=== PATIENT | female | born 1985 | race Caucasian/White ===

== ENCOUNTER 2018-03-04 00:23 | Emergency (ER) | payer BC, OTHER ==
[~2018-03-04] VITALS: Ht 167.6 cm; Wt 127.5 kg
[~2018-03-04 00:23] MED LIST: PHENTERMINE H37.5 M1 PO
[2018-03-04] MEDS ORDERED: ONDANSETRON HCL INJ 2 MG/ML VIAL IV STA (01:18)
[2018-03-04] MEDS ORDERED: FAMOTIDINE 20 MG/2 ML VIAL IV STA (01:18)
[2018-03-04] MEDS ORDERED: SODIUM CHLORIDE 0.9% 1000ML 1,000 ML IV SCH (01:30)
== END 2018-03-04 02:38 | disposition home or self-care (01) ==
LOC: FSED 00:23
DX: O21.9 Vomiting of pregnancy, unspecified (principal); R19.7 Diarrhea, unspecified; K52.9 Noninfective gastroenteritis and colitis, unspecified
CPT/HCPCS: 80048; 81003; 85025; 99283

== ENCOUNTER 2018-12-05 21:14 | Emergency (ER) | payer OTHER ==
[~2018-12-05] VITALS: Ht 167.6 cm; Wt 131.5 kg
--- OUTSIDE RECORDS SUMMARY | 2018-12-05 21:16 | XMS REPORT ---
Author Author [facility] Address Unknown Phone Unavailable Care Team Providers Care Financial Underwriter Name Role Phone Unavailable Unavailable Payers Payer Name Policy Type Policy Number Effective Date Expiration Date Problems This patient has no known problems. Allergies, Adverse Reactions, Alerts Allergy Name Allergy Type Status Severity Reaction(s) Onset Date Inactive Date Treating Clinician Comments pseudoephedrine DA Active [place] 2017-10-20 00:00:00 adhesive tape DA Active [place] 2017-10-20 00:00:00 loratadine DA Active [place] 2017-10-20 00:00:00 latex DA Active [place] 2017-10-20 00:00:00 Medications This patient has no known medications. Results Test Description Test Time Test Comments Text Results Atomic Results Result Comments SURGICAL SPECIMENS 2018-08-08 07:42:00 RUN DATE: 08/08/18 [facility] *LIVE* PAGE 1 RUN TIME: 741 Specimen Inquiry RUN USER: INTERFACE PATIENT: JEFERSON CARTER LOC: [facility] U #: [id number] AGE/SX: 32/ ROOM: Marcus RE08/03/18REG DR: Wei Peña MD : 87 BED: 1 DIS: 08/06/18 STATUS: DIS IN TLOC: SPEC #: [id number] RECD: 08/06/18 STATUS: SOUT REQ #: [id number] KAILEY: 08/06/[address]: Wei Peña MD ENTERED: 08/07/18 SP TYPE: SURG SPEC OTHR DR: Yuliet Bishop MD, JR,Kev Ennis MD, MDORDERED: GM LEVEL 4 CODES: [id number] - PLACENTA, NOS COPIES TO: Yuliet Bishop MD [address] [place] [address] [address] [place] [address] Titi Bermudez JR, MD [address] [address] Wei Peña MD [address] [place] [address] [address] [place], [place] [id number] Kev Joshua MD [address] [place] [address] PROCEDURES: GM LEVEL 4 (Incomplete) TISSUES: 1. PLACENTA, NOS - Placenta, 3rd trimester. FINAL DIAGNOSIS Placenta, 3rd trimester: Histologically mature oliveira placenta (458 g, 15th percentile for gestational age), acute chorionitis, vasculitis and phlebitis of umbilical cord. GROSS AND MICROSCOPIC GROSS EXAMINATION: Received in formalin labeled placenta is a 458 g 15 x 15 x 2.6 cm placenta. The surface is bluegray with tortuous vessels on the surface. The maternal surface is intact with focal adherent hemorrhage. The eccentrically inserted 3 vessel umbilical cord measures 19 cm in length CONTINUED ON NEXT PAGE RUN DATE: 08/08/18 [facility] *LIVE* PAGE 2 RUN TIME: 741 Specimen Inquiry RUN USER: INTERFACE -------- SPEC #: [id number] PATIENT: JEFERSON CARTER #[id number] (Continued) GROSS AND MICROSCOPIC (Continued) 0.8 cm in diameter. The membranes are thin and translucent. The parenchyma is beefy red without identifiable lesions. SECTION CODE: (A) Membranes (B) umbilical cord (C)-(E) placental parenchyma. MICROSCOPIC EXAMINATION: Sections of the umbilical cord reveal three vessels with acute inflammation of one artery and the vein ( Inflammatory Response Stage 2 Grade 1). The membranes and surface show mild acute inflammation of the chorion and subchorion (Maternal Inflammatory Response Stage 1 Grade 1). Maturation is appropriate for gestational age. The underlying maternal decidua beneath the placenta contains a mixed inflammatory infiltrate. POST-OP DIAGNOSIS Delivered PRE-OP DIAGNOSIS , 40.1 weeks, elevated blood pressure Signed SIGNATURE ON FILE Jesus Birch Cyndi RODRIGUEZ 08/08/18 0742 --- END OF REPORT RAPID PLASMA REAGIN 2018-08-04 11:12:00 RAPID PLASMA REAGIN (test code=RPR) NONREACTIVE NONREACTIVE AG HEPATITIS B [id number] 11:12:00* Test Item Value Reference Range Comments AG HEPATITIS B SURFACE (test code=HBSAG) NON REACTIVE INDEX NonReactive AB HIV 1 11:12:00* Test Item Value Reference Range Comments AB HIV 1 2 (test code=BNI00TO) NONREACTIVE INDEX NONREACTIVE CBC W/AUTO [id number] 07:17:00* Test Item Value Reference Range Comments WHITE BLOOD CELL (test code=WBC) 14.64 x10 3/uL 4.5-11.0 RED BLOOD CELL (test code=RBC) 3.46 x10 6/uL 3.54-5.02 HEMOGLOBIN (test code=HGB) 9.1 g/dL 11.0-15.0 HEMATOCRIT (test code=HCT) 29.4 % 33.0-45.0 MEAN CELL VOLUME (test code=MCV) 85.0 fL 81.0-99.0 MEAN CELL HGB (test code=MCH) 26.3 pg 27.0-33.0 MEAN CELL HGB CONCETRATION (test code=MCHC) 31.0 g/dL 33.0-37.0 RED CELL DISTRIBUTION WIDTH CV (test code=RDW) 16.3 % 11.5-14.5 RED CELL DISTRIBUTION WIDTH SD (test code=RDW-SD) 49.6 fL 37.0-54.0 PLATELET COUNT (test code=PLT) 279 x10 3/uL 150-400 MEAN PLATELET VOLUME (test code=MPV) 10.1 fL 7.0-9.0 NEUTROPHIL % (test code=NT%) 74.7 % 56.0-77.0 IMMATURE GRANULOCYTE % (test code=IG%) 0.7 % 0.0-2.0 LYMPHOCYTE % (test code=LY%) 17.8 % 14.0-32.0 MONOCYTE % (test code=MO%) 5.8 % 4.8-9.0 EOSINOPHIL % (test code=EO%) 0.8 % 0.3-3.7 BASOPHIL % (test code=BA%) 0.2 % 0.0-2.0 NUCLEATED RBC % (test code=NRBC%) 0.0 % 0-0 NEUTROPHIL # (test code=NT#) 10.93 x10 3/uL 2.0-7.6 IMMATURE GRANULOCYTE # (test code=IG#) 0.10 x10 3/uL 0.00-0.03 LYMPHOCYTE # (test code=LY#) 2.61 x10 3/uL 1.0-3.8 MONOCYTE # (test code=MO#) 0.85 x10 3/uL 0.1-0.8 EOSINOPHIL # (test code=EO#) 0.12 x10 3/uL 0.0-0.2 BASOPHIL # (test code=BA#) 0.03 x10 3/uL 0.0-0.2 NUCLEATED RBC # (test code=NRBC#) 0.00 x10 3/uL 0.0-0.1 MANUAL DIFF REQUIRED (test code=MDIFF) NO RAPID PLASMA [id number] 20:03:00* Test Item Value Reference Range Comments RAPID PLASMA REAGIN (test code=RPR) NONREACTIVE AG HEPATITIS B [id number] 20:03:00* Test Item Value Reference Range Comments AG HEPATITIS B SURFACE (test code=HBSAG) NON REACTIVE INDEX NonReactive AB HIV 1 20:03:00* Test Item Value Reference Range Comments AB HIV 1 2 (test code=[id number]) NONREACTIVE INDEX NONREACTIVE CORD ARTERIAL BLOOD [id number] 19:17:00* Test Item Value Reference Range Comments CORD BLOOD PH (test code=PH/C) 7.22 7.20-7.30 CORD BLOOD PCO2 (test code=PCO2/C) 48 MMHG 45-50 CORD BLOOD PO2 (test code=PO2/C) 9 mmHg 15-25 CORD BLOOD HCO3 (test code=HCO3/C) 20 mmol/L 15-25 BASE EXCESS CORD (test code=ILIANA/C) -8.0 mmol/L -5-5 RAPID PLASMA [id number] 15:29:00* Test Item Value Reference Range Comments RAPID PLASMA REAGIN (test code=RPR) NONREACTIVE AG HEPATITIS B [id number] 15:29:00* Test Item Value Reference Range Comments AG HEPATITIS B SURFACE (test code=HBSAG) NON REACTIVE INDEX NonReactive AB HIV 1 15:29:00* Test Item Value Reference Range Comments AB HIV 1 2 (test code=[id number]) INDEX NONREACTIVE URINALYSIS [id number] 15:10:00* Test Item Value Reference Range Comments UA COLOR (test code=COLU) YELLOW YEL/STRAW UA APPEARANCE (test code=APPU) CLEAR CLEAR UA GLUCOSE DIPSTICK (test code=DGLUU) NEGATIVE NEGATIVE UA BILIRUBIN DIPSTICK (test code=BILU) NEGATIVE NEGATIVE UA KETONE DIPSTICK (test code=KETU) NEGATIVE NEGATIVE UA SPECIFIC GRAVITY (test code=SGU) 1.014 1.005-1.030 UA BLOOD DIPSTICK (test code=RACHEL) NEGATIVE NEGATIVE UA PH DIPSTICK (test code=NEVAEH) 7.0 5.0-7.0 UA PROTEIN DIPSTICK (test code=PROU) NEGATIVE NEGATIVE UA UROBILINIOGEN DIPSTICK (test code=URO) 0.2 mg/dL 0.2-1.0 UA NITRITE DIPSTICK (test code=TAYA) NEGATIVE NEGATIVE UA LEUKOCYTE ESTERASE DIPSTICK (test code=LEUU) NEGATIVE NEGATIVE UA WBC (test code=WBCU) 0-3 WBC/HPF 0-3 UA RBC (test code=RBCU) 0-3 RBC/HPF 0-3 UA BACTERIA (test code=BACU) 3+ /HPF NONE SEEN UA SQUAMOUS CELLS (test code=SQU) 0-5 /HPF NONE SEEN UA MUCUS (test code=MUCU) TRACE /LPF NONE SEEN COMPREHENSIVE METABOLIC [id number] 15:06:00* Test Item Value Reference Range Comments SODIUM (test code=NA) 143 mEq/L 134-147 POTASSIUM (test code=K) 3.7 mEq/L 3.4-5.0 CHLORIDE (test code=CL) 107 mEq/L 100-108 CARBON DIOXIDE (test code=CO2) 23 mEq/L 21-33 ANION GAP (test code=GAP) 17 0-20 GLUCOSE (test code=GLU) 71 mg/dL 70-110 BLOOD UREA NITROGEN (test code=BUN) 10 mg/dL 7-18 GLOMERULAR FILTRATION RATE (test code=GFR) 98.3 105-110 Units of measure=ml/min/1.73 m2 CREATININE (test code=CREAT) 0.7 mg/dL 0.6-1.3 TOTAL PROTEIN (test code=PROT) 6.4 g/dL 6.4-8.2 ALBUMIN (test code=ALB) 2.20 g/dL 3.4-5.0 CALCIUM (test code=CA) 8.3 mg/dL 8.0-10.5 BILIRUBIN TOTAL (test code=BILT) 0.20 mg/dL 0.0-1.0 SGOT/AST (test code=AST) 11 IUnit/L 15-37 SGPT/ALT (test code=ALT) 18 IUnit/L 15-65 ALKALINE PHOSPHATASE TOTAL (test code=ALKP) 141 IUnit/L 20-125 URIC [id number] 15:06:00* Test Item Value Reference Range Comments URIC ACID (test code=URIC) 4.3 mg/dL 2.6-7.2 LACTIC DEHYDROGENASE(LDH)2018-08-03 15:06:00* Test Item Value Reference Range Comments LACTIC DEHYDROGENASE(LDH) (test code=LDH) 186 IUnits/L 84-246 CBC W/AUTO [id number] 14:59:00* Test Item Value Reference Range Comments WHITE BLOOD CELL (test code=WBC) 15.70 x10 3/uL 4.5-11.0 RED BLOOD CELL (test code=RBC) 4.00 x10 6/uL 3.54-5.02 HEMOGLOBIN (test code=HGB) 10.6 g/dL 11.0-15.0 HEMATOCRIT (test code=HCT) 34.1 % 33.0-45.0 MEAN CELL VOLUME (test code=MCV) 85.3 fL 81.0-99.0 MEAN CELL HGB (test code=MCH) 26.5 pg 27.0-33.0 MEAN CELL HGB CONCETRATION (test code=MCHC) 31.1 g/dL 33.0-37.0 RED CELL DISTRIBUTION WIDTH CV (test code=RDW) 15.9 % 11.5-14.5 RED CELL DISTRIBUTION WIDTH SD (test code=RDW-SD) 49.2 fL 37.0-54.0 PLATELET COUNT (test code=PLT) 328 x10 3/uL 150-400 MEAN PLATELET VOLUME (test code=MPV) 10.1 fL 7.0-9.0 NEUTROPHIL % (test code=NT%) 79.8 % 56.0-77.0 IMMATURE GRANULOCYTE % (test code=IG%) 1.0 % 0.0-2.0 LYMPHOCYTE % (test code=LY%) 12.0 % 14.0-32.0 MONOCYTE % (test code=MO%) 6.3 % 4.8-9.0 EOSINOPHIL % (test code=EO%) 0.8 % 0.3-3.7 BASOPHIL % (test code=BA%) 0.1 % 0.0-2.0 NUCLEATED RBC % (test code=NRBC%) 0.0 % 0-0 NEUTROPHIL # (test code=NT#) 12.54 x10 3/uL 2.0-7.6 IMMATURE GRANULOCYTE # (test code=IG#) 0.15 x10 3/uL 0.00-0.03 LYMPHOCYTE # (test code=LY#) 1.88 x10 3/uL 1.0-3.8 MONOCYTE # (test code=MO#) 0.99 x10 3/uL 0.1-0.8 EOSINOPHIL # (test code=EO#) 0.12 x10 3/uL 0.0-0.2 BASOPHIL # (test code=BA#) 0.02 x10 3/uL 0.0-0.2 NUCLEATED RBC # (test code=NRBC#) 0.00 x10 3/uL 0.0-0.1 MANUAL DIFF REQUIRED (test code=MDIFF) NO AMNISURE (ROM) [id number] 22:00:00* Test Item Value Reference Range Comments AMNISURE (ROM) TEST (test code=AMNI) NEGATIVE NEGATIVE OPENED:06/10/2018
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
[2018-12-05 22:59] VITALS: BP 130/80
== END 2018-12-05 23:05 | disposition home or self-care (01) ==
LOC: FSED 21:14
DX: S00.83XA Contusion of other part of head, initial encounter (principal); M54.2 Cervicalgia; S13.4XXA Sprain of ligaments of cervical spine, initial encounter; V53.5XXA Driver of pick-up truck or van injured in collision with car, pick-up truck or van in traffic accident, initial encounter; Y92.488 Other paved roadways as the place of occurrence of the external cause; I10 Essential (primary) hypertension
CPT/HCPCS: 70450; 72125; 81025; 99283

== ENCOUNTER 2021-04-09 12:45 | Emergency (ER) | payer OTHER ==
[~2021-04-09] VITALS: Ht 167.6 cm; Wt 131.5 kg
[2021-04-09] MEDS ORDERED: KETOROLAC TROMETHAMINE 30 MG/ML VIAL IM ONE (13:05)
[2021-04-09] MEDS ORDERED: HYDROCODONE/APAP 5MG-325MG TAB PO ONE (13:15)
[2021-04-09] MEDS ORDERED: MORPHINE SULFAT15 MG PO (13:52)
[2021-04-09 14:18] LABS: CLARITY,URINE CLEAR (CLEAR); COLOR,URINE YELLOW (YELLOW); KETONES,URINE TRACE (NEGATIVE); LEUKOCYTE ESTERASE ,URINE NEGATIVE (NEGATIVE); NITRITE,URINE NEGATIVE (NEGATIVE); PROTEIN,URINE DIPSTICK NEGATIVE (NEGATIVE); URINE UROBILINOGEN 0.2 mg/dL (0.2 - 1)
[2021-04-09 14:25] LABS: BACTERIA,URINE FEW /HPF; EPITHELIAL CELLS,URINE FEW /LPF; WBC,URINE (MAN) 0-5 /HPF (0-5)
== END 2021-04-09 15:29 | disposition home or self-care (01) ==
LOC: ER 13:05
DX: N20.0 Calculus of kidney (principal); R10.9 Unspecified abdominal pain
CPT/HCPCS: 74018; 81001; 81025; 99283; J1885